=== PATIENT | male | born 1965 | race Caucasian/White ===

== ENCOUNTER 2025-05-25 20:54 | Inpatient (IN) | payer OTHER, SELFPAY ==
[2025-05-25] VITALS (17 sets, daily range): BP systolic 73–131; BP diastolic 50–85; BMI 35.4; BMI 35.8
--- NOTE | 2025-05-25 17:04 | ED.GENMED ---
History of Present Illness
<Kraig Dela Cruz MD, Resident - Last Filed: 05/25/25 19:53>
General
Chief Complaint: Abdominal Symptoms
Source: patient
Time Seen by Provider: 05/25/25 16:51
History of Present Illness
History of Present Illness:
Mr. Whalen is a 60-year-old male with history of external hemorrhoids who presents with 1 day of 'shakes,' fevers of up to 102 F, vomiting, and diarrhea. He states that yesterday around 8 PM, he started getting extreme chills and shakes that waxed
and waned for a few hours. He he reports checking his temperature and it was 102F at that point. He tried to sleep, however he developed yellow/brown watery diarrhea that kept him awake followed by episodes of yellow/green vomiting. He also
reports having an intense lower back pain at this time, which she presumes is from straining and retching, and that was alleviated by Advil. He also reports feeling very bloated. Currently he does not feel nauseous. His last episode of emesis was
at 1 PM today and he had diarrhea about 1 hour before coming to the ED. In urgent care, he reports his temperature was 101.6. Him and his partner ate this meal yesterday morning at a diner, but otherwise report no diet changes. Mr. Whalen denies
nausea, SOB, palpitations, recent antibiotic course, travel, or pain anywhere. He does endorse some dizziness.
<Yogesh Stewart, DO - Last Filed: 05/25/25 18:05>
General
Exam Limitations: none
Past History
<Kraig Dela Cruz MD, Resident - Last Filed: 05/25/25 19:53>
Past History
ED Past Medical History: None
ED Past Surgical History: None
Social History
Tobacco: Non-smoker
Alcohol: None
Drug: None
Personal:
Living: with family
Review of Systems
<Kraig Dela Cruz MD, Resident - Last Filed: 05/25/25 19:53>
Review of Systems
Allergies reviewed?: No
All Other Systems: ROS reviewed and negative except as documented in HPI and ROS
Constitutional: Reports fatigue and chills
Phy Exam
<Kraig Dela Cruz MD, Resident - Last Filed: 05/25/25 19:53>
General Physical Exam
General Presentation: well appearing
General Skin: dry and pale
General Habitus: obese
General Mental: alert
General Hydration: dry mucous membranes
ENT Exam
ENT Exam: EOMI
Pulmonary Exam
Pulmonary Exam: lungs clear, no respiratory distress and chest non tender
Gastrointestinal Exam
Gastrointestinal Exam: normal bowel sounds, non tender, soft and non distended
Skin Exam
Skin Exam: warm/dry and pallor
Psychiatric Exam
Psychiatric Exam: normal mood/affect
Sepsis
<Kraig Dela Cruz MD, Resident - Last Filed: 05/25/25 19:53>
Sepsis Screening
Sepsis Assessment: Sepsis
Sepsis Screen
Sepsis Screen: Sepsis
Date: 05/25/25
Time: 19:53
Course
<Kraig Dela Cruz MD, Resident - Last Filed: 05/25/25 19:53>
Orders/Labs/Results
Orders:
Orders
05/25/25 17:09
0.9% Sodium Chloride 1000 ml [Nss] 3,500 ml IV NOW STA
05/25/25 17:10
Stool for Occult Blood Routine
05/25/25 17:11
Electrocardiogram (*1) Urgent
Reason for Study: Tachycardia
05/25/25 17:25
Complete Blood Count/With Diff Urgent
Comprehensive Metabolic Panel Urgent
Manual Differential Urgent
Blood Culture Q30M
SHIMON Source: Blood/Venous
Specimen Description:
05/25/25 17:29
Piperacillin/Tazo 3.375 Gram [Zosyn] 3.375 gram in 50 ml IV NOW
05/25/25 17:38
Lactic Acid Q4H
Comment: ON ICE, CANCEL 2ND ORDER IF FIRST LACTIC ACID LEVEL <2
05/25/25 17:56
CT Abd/pel (oral only)-DH Only Urgent
Comment:
Reason For Exam: sepsis ARF
Iohexol [Omnipaque] See Protocol PO NOW STA
05/25/25 19:27
Urinalysis Reflex To Culture Urgent
Date Specimen was Collected: 05/25/25
Time Specimen was Collected: 19:25
Urine Microscopic Reflex Cult Urgent
Urine Culture Urgent
SHIMON Source: U
Specimen Description:
Date Specimen was Collected: 05/25/25
Time Specimen was Collected: 19:25
05/25/25 19:28
Norovirus by PCR Urgent
SHIMON Source: Feces/Stool
Specimen Description:
Date Specimen was Collected: 05/25/25
Time Specimen was Collected: 19:24
Ova & Parasites Giardia/Crypto AG [Giardia/Cryptosporidium Ag] Urgent
SHIMNO Source: Feces/Stool
Specimen Description:
Date Specimen was Collected: 05/25/25
Time Specimen was Collected: 19:24
STOOL [C difficile Antigen & Toxins] Urgent
SHIMON Source: Feces/Stool
Specimen Description:
Date Specimen was Collected: 05/25/25
Time Specimen was Collected: 19:24
Stool Culture Urgent
SHIMON Source: Feces/Stool
Specimen Description:
Date Specimen was Collected: 05/25/25
Time Specimen was Collected: 19:24
Yersinia Culture-Stool Urgent
SHIMON Source: Feces/Stool
Specimen Description:
Date Specimen was Collected: 05/25/25
Time Specimen was Collected: 19:24
05/25/25 21:45
Lactic Acid Q4H
Comment: ON ICE, CANCEL 2ND ORDER IF FIRST LACTIC ACID LEVEL <2
Abnormal Lab Results
05/25/25 05/25/25 05/25/25
17:25 17:38 19:27
RBC 4.51 L 10^6/uL
(4.70-6.10)
Abs Neuts (Manual) 8.4 H 10^3/uL
(1.4-6.5)
Band Neutrophils 18 H %
(0-3)
Lymphocytes (Manual) 8 L %
(20-51)
Monocytes (Manual) 10 H %
(2-9)
Carbon Dioxide 20 L mmol/L
(22-30)
BUN 36 H mg/dl
(9-20)
Creatinine 2.6 H mg/dL
(0.7-1.3)
Glucose 132 H mg/dl
(70-99)
Lactic Acid 8.6 H* mmol/L
(0.7-2.0)
Total Bilirubin 1.5 H mg/dl
(0.2-1.3)
Ur Occult Blood Reflex 1+ A
(Negative)
Leukocyte Esterase Rfl 1+ A
(Negative)
Urine Albumin (Reflex) 3+ A
(Neg - Trace)
05/25/25 17:25
05/25/25 17:25
Vital Signs
Initial and Last Documented VS:
Initial Vital Signs
Temp Pulse Resp BP Pulse Ox
98.0 F 131 22 90/59 98
05/25/25 16:05/25/25 16:05 05/25/25 16:05/25/25 16:05/25/25 16:05
Last Documented Vital Signs
Temp Pulse Resp BP Pulse Ox
98.0 F 105 30 118/78 94
05/25/25 16:05/25/25 19:15 05/25/25 17:13 05/25/25 19:15 05/25/25 18:15
<Yogesh Stewart, DO - Last Filed: 05/25/25 18:05>
Orders/Labs/Results
Orders:
Orders
05/25/25 17:09
0.9% Sodium Chloride 1000 ml [Nss] 3,500 ml IV NOW STA
05/25/25 17:10
Stool for Occult Blood Routine
05/25/25 17:11
Electrocardiogram (*1) Urgent
Reason for Study: Tachycardia
05/25/25 17:25
Complete Blood Count/With Diff Urgent
Comprehensive Metabolic Panel Urgent
Manual Differential Urgent
Blood Culture Q30M
SHIMON Source: Blood/Venous
Specimen Description:
05/25/25 17:29
Piperacillin/Tazo 3.375 Gram [Zosyn] 3.375 gram in 50 ml IV NOW
05/25/25 17:38
Lactic Acid Q4H
Comment: ON ICE, CANCEL 2ND ORDER IF FIRST LACTIC ACID LEVEL <2
05/25/25 17:56
CT Abd/pel (oral only)-DH Only Urgent
Comment:
Reason For Exam: sepsis ARF
Iohexol [Omnipaque] See Protocol PO NOW STA
05/25/25 19:27
Urinalysis Reflex To Culture Urgent
Date Specimen was Collected: 05/25/25
Time Specimen was Collected: 19:25
Urine Microscopic Reflex Cult Urgent
Urine Culture Urgent
SHIMON Source: U
Specimen Description:
Date Specimen was Collected: 05/25/25
Time Specimen was Collected: 19:25
05/25/25 19:28
Norovirus by PCR Urgent
SHIMON Source: Feces/Stool
Specimen Description:
Date Specimen was Collected: 05/25/25
Time Specimen was Collected: 19:24
Ova & Parasites Giardia/Crypto AG [Giardia/Cryptosporidium Ag] Urgent
SHIMON Source: Feces/Stool
Specimen Description:
Date Specimen was Collected: 05/25/25
Time Specimen was Collected: 19:24
STOOL [C difficile Antigen & Toxins] Urgent
SHIMON Source: Feces/Stool
Specimen Description:
Date Specimen was Collected: 05/25/25
Time Specimen was Collected: 19:24
Stool Culture Urgent
SHIMON Source: Feces/Stool
Specimen Description:
Date Specimen was Collected: 05/25/25
Time Specimen was Collected: 19:24
Yersinia Culture-Stool Urgent
SHIMON Source: Feces/Stool
Specimen Description:
Date Specimen was Collected: 05/25/25
Time Specimen was Collected: 19:24
05/25/25 21:45
Lactic Acid Q4H
Comment: ON ICE, CANCEL 2ND ORDER IF FIRST LACTIC ACID LEVEL <2
Abnormal Lab Results
05/25/25 05/25/25 05/25/25
17:25 17:38 19:27
RBC 4.51 L 10^6/uL
(4.70-6.10)
Abs Neuts (Manual) 8.4 H 10^3/uL
(1.4-6.5)
Band Neutrophils 18 H %
(0-3)
Lymphocytes (Manual) 8 L %
(20-51)
Monocytes (Manual) 10 H %
(2-9)
Carbon Dioxide 20 L mmol/L
(22-30)
BUN 36 H mg/dl
(9-20)
Creatinine 2.6 H mg/dL
(0.7-1.3)
Glucose 132 H mg/dl
(70-99)
Lactic Acid 8.6 H* mmol/L
(0.7-2.0)
Total Bilirubin 1.5 H mg/dl
(0.2-1.3)
Ur Occult Blood Reflex 1+ A
(Negative)
Leukocyte Esterase Rfl 1+ A
(Negative)
Urine Albumin (Reflex) 3+ A
(Neg - Trace)
05/25/25 17:25
05/25/25 17:25
Vital Signs
Initial and Last Documented VS:
Initial Vital Signs
Temp Pulse Resp BP Pulse Ox
98.0 F 131 22 90/59 98
05/25/25 16:05 05/25/25 16:05 05/25/25 16:05 05/25/25 16:05 05/25/25 16:05
Last Documented Vital Signs
Temp Pulse Resp BP Pulse Ox
98.0 F 105 30 118/78 94
05/25/25 16:05 05/25/25 19:15 05/25/25 17:13 05/25/25 19:15 05/25/25 18:15
<Kraig Dela Cruz MD, Resident - Last Filed: 05/25/25 19:53>
MDM/Problems Addressed
Differential Diagnosis Includes:
Gastroenteritis
Colitis
Acute Anemia
GI Bleed
Abdominal Abscess
MDM/Problems Addressed:
Mr. Whalen is a 60-year-old male with history of external hemorrhoids who presents with 1 day of 'shakes,' fevers of up to 102 F, vomiting, and diarrhea.
#Sepsis
#Vomiting
#Diarrhea
The etiology of his symptoms is most suspicious for gastroenteritis, although differential above is still possible. We will plan to admit him for further workup.
- Lactic Acid 8.6
- Fluid Resuscitation 30cc/kg - 3.5L NSS
- IV Zosyn 3.375g x1
- Blood cultures
- Stool cultures
- Stool studies - Yersinia, Norovirus, Giardia, C Diff, Stool/Ova
- CT A/P with oral contrast
#ALANA
Creatinine 2.6. Unclear what baseline is.
- Fluid resuscitation as above.
<Kraig Dela Cruz MD, Resident - Last Filed: 05/25/25 19:53>
*Pulse Oximetry
SaO2: 95
Patient hypoxic: no
*Critical Care Note
Total Time (30-74mins, 75-104mins- exclusive of procedures): Not Applicable
ED Attending Note
<Kraig Dela Cruz MD, Resident - Last Filed: 05/25/25 19:53>
-
Portions of this chart may have been created with voice recognition software.� Occasional wrong word or��sound alike� substitutions may have occurred due to the inherent limitations of voice recognition software.
<Yogesh Stewart DO - Last Filed: 05/25/25 18:05>
ED Attending Note
Patient seen and examined by attending physician: Yes
I performed a history and physical exam of patient and discussed management with resident, I reviewed resident's note and agree with documented findings and plan of care.: Yes
ED Attending Note:
Seen with resident examined independently 60-year-old male male on male relationship on PrEP, hypertension presents with fever chills back pain nausea profuse diarrhea no foreign travel, no sick contacts, here is hypotensive, normal mental status
will check stool cultures, blood cultures volume resuscitation CT of the abdomen empiric antibiotics follow closely
Discharge Plan
Departure
Patient Disposition: Admit
Date of Disposition: 05/25/25
Time of Disposition: 19:41
Admit to: Telemetry and IMU
Presentation/result/management discussed w/ accepting MD/DO: Hospitalist
Discharge Problem:
Sepsis, Vomiting, Diarrhea
Prescriptions:
No Action
Descovy 200-25 mg Tablet
1 tab PO DAILY
Referrals:
Jeremy Gupta MD [Family Provider, General]
Interventions
Interventions:
*Risk Screen - Suicide Last Done: 05/25/25 16:11
*General Assessment Last Done: 05/25/25 17:02
*Neglect/Abuse Screening Last Done: 05/25/25 16:11
*ED- Fall Risk Assessment Last Done: 05/25/25 17:02
*ED COVID-19 Vaccine History Last Done: 05/25/25 17:02
NG-Rzfose-Ccskdnglxp Assessment Last Done: 05/25/25 17:02
Discharge Date and Time
Print Language: UKRAINIAN
[2025-05-25] MEDS: NSS 3500 ML IV (17:30)
[2025-05-25] MEDS: ZOSYN 50 IV ×2 (17:38→23:38)
[2025-05-25 17:54] LABS: AST (SGOT) 25 U/L (17-59); Albumin 4.4 g/dl (3.5-5.0); Alkaline Phosphatase 60 U/L (38-126); Blood Urea Nitrogen 36 mg/dl (9-20); Calcium 8.9 mg/dl (8.4-10.2); Carbon Dioxide 20 mmol/L (22-30); Chloride 101 mmol/L (98-107); Estimated Creatinine Clearance 39 ml/min; Glucose 132 mg/dl (70-99); Potassium 3.9 mmol/L (3.5-5.1); Sodium 136 mmol/L (135-145); Total Protein 7.0 g/dl (6.3-8.2); eGFR 27.55
[2025-05-25 18:04] LABS: ALT (SGPT) 29 U/L (0-50)
[2025-05-25] MEDS: OMNIPAQUE 50 ML PO (18:14)
[2025-05-25 18:36] LABS: Hematocrit 40.2 % (39.0-52.0); Hemoglobin 13.6 g/dL (13.0-18.0); Mean Corp Hgb Conc. 33.8 g/dL (33.0-37.0); Mean Corpuscular Volume 89.1 fL (80.0-94.0); Platelet Count 225 10^3/uL (130-400); Red Cell Dist. Width 12.4 % (11.5-14.5)
[2025-05-25 18:37] LABS: Absolute Neutrophils -Man Diff 8.4 10^3/uL (1.4-6.5); Normal RBC Morphology Yes; Platelets Checked Yes; Total Cells Counted 100
[2025-05-25 19:40] LABS: Urine Character Slightly Cloudy (Clear)
--- NOTE | 2025-05-25 19:59 | HPS.HSE ---
Family Physician
-
Family Physician: Jeremy Gupta MD
Chief Complaint
-
Diarrhea
History of Present Illness
This is a 60-year-old with past medical history of HIV on [place] presenting to the emergency department with diarrhea vomiting and fevers up to 102.
Symptoms began at around 8 PM yesterday with extreme chills and shakes at work, went for hours. He reported that he had a temperature of 102 yesterday. He then developed yellow/brown watery diarrhea that kept him awake followed by episodes of
yellow-green vomiting.
He reports intense lower back pain associated with straining and retching. Bloating but not nausea. Last emesis was 1 PM today that was diarrhea prior to coming to the ED. Had a Tmax of 101.6 at urgent care prior to coming to the ED.
So far in the ED his temperature was 98, blood pressure on arrival was 73/50, as high as 118/78 after crystalloid resuscitation, with a pulse of 105 and he was satting 94% on room air
Has a white count of 10.8 hemoglobin 13.6 platelet of 225, electrolytes were normal. BUN/creatinine elevated at 31 and 2.6 with unknown baseline.
ECG shows sinus tachycardia at 106.
UA with some WBCs and bacteria and leukocyte esterase but likely contaminated.
Medical History
Past Medical History
Past Medical History: Reports Other
Additional Past Medical History:
Obesity,
HIV on ART
External hemorrhoid
Past Surgical History: Reports None
Social History
Tobacco: Non-smoker
Alcohol: None
Drug: None
Family History
Family History: Not pertinent
Allergies / Home Medications
Allergies reflects when Allergies were last updated in [facility].
Home Medications with original date entered in [facility]
Allergy/Medication List:
Allergies
Allergy/AdvReac Type Severity Reaction Status Date / Time
No Known Allergies Allergy Verified 05/25/25 16:10
Home Medications
emtricitabine 200 mg-tenofovir alafenamide fumarate 25 mg tablet (Descovy) 1 tab PO DAILY 05/25/25
Review of Systems
-
Constitutional: Reports Fever
EENT: Reports No Symptoms
Respiratory: Reports No Symptoms
Cardiac: Reports No Symptoms
Abdomen/GI: Reports See HPI
: Reports No Symptoms
Musculoskeletal: Reports No Symptoms
Skin: Reports No Symptoms
Neurological: Reports No Symptoms
Endocrine: Reports No Symptoms
Hematologic/Lymphatic: Reports No Symptoms
Psych: Reports No Symptoms
Physical Exam
Vital Signs
Vital Signs
Temp Pulse Resp BP Pulse Ox
98.0 F 105 30 118/78 94
05/25/25 16:05 05/25/25 19:15 05/25/25 17:13 05/25/25 19:15 05/25/25 18:15
Physical Exam
General: Well Developed, Well Nourished and No Apparent Distress
HEENT: NormoCephalic, Moist mucous membranes and Atraumatic
Respiratory: Clear
Cardiac: S1/S2 and Regular Rhythm; No Murmur or Rub
GI: Soft, Non Tender, Non Distended and Normal Bowel Sounds; No Organomegaly
Rectal: Deferred by Provider
Musculoskeletal: No Clubbing, No Cyanosis and No Edema
Skin: No Rash
Neuro: Nonfocal/grossly intact
Laboratory Results
-
05/25/25 17:25
05/25/25 17:25
Laboratory Results
Lactic Acid 8.6 mmol/L (0.7-2.0) H* 05/25/25 17:38
Total Bilirubin 1.5 mg/dl (0.2-1.3) H 05/25/25 17:25
AST 25 U/L (17-59) 05/25/25 17:25
ALT 29 U/L (0-50) 05/25/25 17:25
Alkaline Phosphatase 60 U/L (38-126) 05/25/25 17:25
Data Reviewed
-
CT Scan: Report Reviewed by me
Medical Tests (Nuc Med, Echo, EKG etc): Image Personally Visualized and interpreted
Lab Data: Labs Reviewed by me
Old Records: Reviewed
Impression/Plan
-
IMPRESSION:
60-year-old male on Descovy for exposure prophylaxis with normal WBCs and no history of AIDS HIV infection himself presents to the emergency department with 1 day of voluminous, continued watery brown diarrhea associated with rigors and fevers and
found to have sepsis with hypotension in the ED. Was hypotensive to 70 systolic. WBC 10.8 with 18% bands, his lactic acid was 8.6, UA is possibly positive. He is pending a CT scan of the abdomen pelvis. He did respond to 30 mL/kg of normal
saline bolus. Patient complicated by presumed ALANA. He is on Descovy for preexposure prophylaxis. He gets 3 months of HIV checks and said that his last check was negative.
CT a/p: There is diffuse wall thickening and surrounding stranding along the colon consistent with pancolitis. Cholelithiasis without CT findings suggestive of acute cholecystitis.
PLAN:
Infectious diarrhea with sepsis -possible discharge he was on clear source. Possibly diarrhea with transient bacteremia. CT scan w/ pancolitis.
- Admit to IMU
- stool culture, cdiff, O&P sent
- blood cultures sent
- Ucx sent
- Acute HIV testing
- diet as tolerated
- continue IV fluids with lactated ringers for now
- can hold descovy for pre exp ppx
ALANA - Suspect sepsis/hypovolemia
- CT scan pending
- Continue IV fluids
- avoid nephrotoxins
- renal dose meds
- no obvious obstruction
- nephrology consult if Cr worsening
DVT PPX - heparin sq
code status - Full Code
[2025-05-25] MEDS: TYLENOL PO (21:26)
[2025-05-25] MEDS: TYLENOL 650 MG PO (21:37)
[2025-05-25] MEDS: LR 1000 IV (23:37)
[2025-05-25] MEDS: ZITHROMAX INFUSION 250 IV (23:38)
[2025-05-25] MEDS: HEPARIN 5000 UNITS SC (23:39)
--- NOTE | 2025-05-26 01:15 | PTCARENOTE ---
Patient arrived from the ED via stretcher at approximately 2215. Patient ambulated self from stretcher to bed - gait steady. Patient AAOx3. VSS as documented. Assessment as documented. Patient oriented to room. Bed in lowest position. Call stanley
within reach.
[2025-05-26 03:19] VITALS: BP 132/71
[2025-05-26] MEDS: ZOSYN 50 IV ×4 (05:20→22:58)
[2025-05-26 07:02] LABS: Hematocrit 34.8 % (39.0-52.0); Hemoglobin 12.2 g/dL (13.0-18.0); Mean Corp Hgb Conc. 35.1 g/dL (33.0-37.0); Mean Corpuscular Volume 86.1 fL (80.0-94.0); Platelet Count 156 10^3/uL (130-400); Red Cell Dist. Width 12.3 % (11.5-14.5)
[2025-05-26 07:40] VITALS: BP 113/72
[2025-05-26 07:50] LABS: Cortisol, Random 31.4 ug/dl
--- NOTE | 2025-05-26 08:26 | W.PN.HOSP.TC ---
Today's Communication/Plan
-
see PN
Assessment / Plan
Assessment / Plan
60yo M with no significant PMHX, currently on Dyscovy for pre-exposure prophylaxis came with watery diarrhea started 48h after admission after dinner. No risk factors identified. CT showed butts-colitis
A/P:
#Sepsis on admission 2/2 Pancolitis
Zosyn
IVF
follow electrolytes
Norovirus, Cryptosporidium and C.diff negative
Stool Cx pending
advance diet as tolerated
HIV test pending
#ALANA
2/2 diarrhea
IVF and follow Cr
CT without hydronephrosis or nephrolithiasis
Urine studies
#Mild bilirubinemia
check direct bili, LDH, retics
Blood smear
#renal cyst 4.2cm
#umbilical hernia
#Splenomegaly, most likely reactive
#Cholelithiasis
outpatient f/u
check monospot
#Bacteriuria
no urinary symptoms, however thickened urinary bladder wall
check Clam/GC
DVT ppx hep
full code
I have spent at least 58min reviewing chart, test results and providing direct patient care
Anticipated Discharge: > 48 hours
Subjective/Interval History
-
Date of Service: May 26, 2025
Objective Data
-
Labs:
Laboratory Results
05/26/25 05/26/25
06:34 07:22
WBC 7.3
Hgb 12.2 L
Hct 34.8 L
Plt Count 156 D
Sodium Cancelled Pending
Potassium Cancelled Pending
Chloride Cancelled Pending
Carbon Dioxide Cancelled Pending
BUN Cancelled Pending
Creatinine Cancelled Pending
Glucose Cancelled Pending
Calcium Cancelled Pending
Total Bilirubin Pending
AST Pending
ALT Pending
Alkaline Phosphatase Pending
Vital Signs:
Vital Signs
Temp Pulse Resp BP Pulse Ox
98.8 F 110 20 132/71 97
05/26/25 03:19 05/26/25 03:19 05/26/25 03:19 05/26/25 03:19 05/26/25 03:19
I&O
05/25/25 05/26/25 05/27/25
06:59 06:59 06:59
Intake Total 1510 / 1510
Balance 1510 / 1510
Review of Systems
-
History Source: Patient
All other systems: Reviewed and negative
Abdomen/GI: Reports Diarrhea and Bloated
Physical Exam
-
General: No Apparent Distress
GI: Soft, Nontender and Distended; Negative Normal Bowel Sounds
Neuro: Awake, Alert, Oriented and AO x 3
Psych: Calm
[2025-05-26] MEDS: HEPARIN 5000 UNITS SC ×2 (08:42→22:59)
[2025-05-26] MEDS: LR 1000 IV ×2 (08:42→15:54)
[2025-05-26 10:33] LABS: ALT (SGPT) 22 U/L (0-50); AST (SGOT) 21 U/L (17-59); Albumin 3.4 g/dl (3.5-5.0); Alkaline Phosphatase 47 U/L (38-126); Blood Urea Nitrogen 33 mg/dl (9-20); Calcium 8.0 mg/dl (8.4-10.2); Carbon Dioxide 22 mmol/L (22-30); Chloride 104 mmol/L (98-107); Estimated Creatinine Clearance 69 ml/min; Glucose 123 mg/dl (70-99); Potassium 4.1 mmol/L (3.5-5.1); Sodium 133 mmol/L (135-145); Total Protein 5.6 g/dl (6.3-8.2); eGFR 53.30
--- NOTE | 2025-05-26 11:23 | CM ---
Reviewed the chart notes and spoke with the patient at the bedside. The patient resides with his significant other in a three story home with three steps to enter. The patient reports no DME/VN/SNF in the past. The patient confirmed his pharmacy
of choice is [facility]. CM continues to be available to patient/family and is monitoring medical plan for needs at discharge.
Plan: Discharge to home when medically stable. No needs identified.
--- NOTE | 2025-05-26 14:05 | PN.CDI ---
Addendum entered and electronically signed by Eloy Cespedes MD 05/26/25 19:04:
irrelevant as diagnosis already provided
Original Note:
CDI
- -
CDI:
Physician Documentation Request
Admit Date: 05/25/25 20:54
Dear Doctor Rubina,
Please review the following and provide your response in the progress notes.
Clinical Indicators:
Pt admitted with sepsis 2/2 infectious diarrhea
Trended lactic acid levels below /Pt did get IVFs
05/25/25 05/25/25 05/26/25
17:38 21:59 02:19
Lactic Acid 8.6 H* 4.2 H* 2.7 H
05/26/25
06:34
Lactic Acid 1.6
Based on the above, could you clarify in the progress notes, the appropriate diagnosis, if significant, that supports the above abnormalities and additional evaluation, monitoring and/or treatment rendered:
Lactic Acidosis
Abnormal lab value only
Other ( please specify)
Use of terms such as suspected, likely, concern for, or probable (associated with a specific diagnosis that is being evaluated, monitored, or treated as if it exists) are acceptable and can be coded in the inpatient setting, when documented at the
time of discharge.
Thank you,
Teresa Abdul RN
CDI Specialist
[place] [facility]
Please use your independent medical judgment in providing your response.
--- NOTE | 2025-05-26 14:11 | PN.CDI ---
Addendum entered and electronically signed by Eloy Cespedes MD 05/26/25 19:03:
documentation already complete
Original Note:
CDI
- -
CDI:
Physician Documentation Request
Admit Date: 05/25/25 20:54
Dear Doctor Rubina ,
Please review the following and provide your response in the progress notes.
Clinical Indicators:
Pt admitted with sepsis 2/2 infectious diarrhea
Documented per progress note 05/26, ' ALANA 2/2 diarrhea IVF and follow Cr....'
Please clarify which of the following most accurately describes the status of the patient's infection:
Severe Sepsis-POA
- Sepsis with associated acute organ dysfunction, such as renal or respiratory failure
- Documentation should indicate the association between the sepsis and the organ dysfunction
Sepsis only
Other ( please specify)
Use of terms such as suspected, likely, concern for, or probable (associated with a specific diagnosis that is being evaluated, monitored, or treated as if it exists) are acceptable and can be coded in the inpatient setting, when documented at the
time of discharge.
Thank you,
Teresa Abdul RN
CDI Specialist
[place] [facility]
Please use your independent medical judgment in providing your response.
[2025-05-26 15:30] VITALS: BP 128/71
[2025-05-26] MEDS: HEPARIN SC (15:52)
[2025-05-26 20:00] VITALS: BP 121/84
[2025-05-26] MEDS: ZITHROMAX INFUSION 250 IV (22:58)
[2025-05-26] MEDS: IMODIUM 2 MG PO (22:58)
[2025-05-26 23:16] VITALS: BP 133/70
[2025-05-27] VITALS (7 sets, daily range): BP systolic 129–155; BP diastolic 86–96
[2025-05-27] MEDS: LR 1000 IV (01:04)
[2025-05-27] MEDS: ZOSYN 50 IV ×4 (05:09→23:00)
[2025-05-27 06:27] LABS: Hematocrit 32.7 % (39.0-52.0); Hemoglobin 11.2 g/dL (13.0-18.0); Mean Corp Hgb Conc. 34.3 g/dL (33.0-37.0); Mean Corpuscular Volume 87.7 fL (80.0-94.0); Platelet Count 163 10^3/uL (130-400); Red Cell Dist. Width 12.3 % (11.5-14.5)
[2025-05-27 06:40] LABS: ALT (SGPT) 18 U/L (0-50); AST (SGOT) 17 U/L (17-59); Albumin 3.1 g/dl (3.5-5.0); Alkaline Phosphatase 47 U/L (38-126); Blood Urea Nitrogen 21 mg/dl (9-20); Calcium 8.2 mg/dl (8.4-10.2); Carbon Dioxide 23 mmol/L (22-30); Chloride 104 mmol/L (98-107); Estimated Creatinine Clearance 94 ml/min; Glucose 105 mg/dl (70-99); Potassium 3.8 mmol/L (3.5-5.1); Sodium 133 mmol/L (135-145); Total Protein 5.4 g/dl (6.3-8.2); eGFR > 60.00
[2025-05-27 07:50] LABS: Nucleated Red Blood Cells % 0 % (-)
[2025-05-27] MEDS: HEPARIN 5000 UNITS SC ×2 (08:19→16:31)
--- NOTE | 2025-05-27 09:42 | W.PN.HOSP.TC ---
Today's Communication/Plan
-
diarrhea improving
cont Abx
stop IVF and monitor Cr
HIV still pending
Assessment / Plan
Assessment / Plan
60yo M with no significant PMHX, currently on Dyscovy for pre-exposure prophylaxis came with watery diarrhea started 48h after admission after dinner. No risk factors identified. CT showed butts-colitis
A/P:
#Sepsis on admission 2/2 Pancolitis
Zosyn
IVF
follow electrolytes
Norovirus, Cryptosporidium and C.diff negative
Stool Cx pending
advance diet as tolerated
HIV test pending
#ALANA
2/2 diarrhea
IVF and follow Cr
CT without hydronephrosis or nephrolithiasis
Urine studies
#Mild bilirubinemia
improved
Blood smear neg for parasites
#renal cyst 4.2cm
#umbilical hernia
#Splenomegaly, most likely reactive
#Cholelithiasis
outpatient f/u
monospot neg
#Bacteriuria
no urinary symptoms, however thickened urinary bladder wall
Clam/GC neg
DVT ppx hep
full code
I have spent at least 51min reviewing chart, test results and providing direct patient care
Anticipated Discharge: Within 24 hours
Subjective/Interval History
-
Date of Service: May 27, 2025
Objective Data
-
Labs:
Laboratory Results
05/27/25
05:07
WBC 6.8
Hgb 11.2 L
Hct 32.7 L
Plt Count 163
Sodium 133 L
Potassium 3.8
Chloride 104
Carbon Dioxide 23
BUN 21 H
Creatinine 1.1
Glucose 105 H
Calcium 8.2 L
Total Bilirubin 0.7
AST 17
ALT 18
Alkaline Phosphatase 47
Vital Signs:
Vital Signs
Temp Pulse Resp BP Pulse Ox
98.2 F 85 18 129/86 96
05/27/25 07:00 05/27/25 07:00 05/27/25 07:00 05/27/25 07:00 05/27/25 08:20
I&O
05/26/25 05/27/25 05/28/25
06:59 06:59 06:59
Intake Total 1510 / 1510 3040 / 3040
Output Total 800 / 800
Balance 1510 / 1510 2240 / 2240
Review of Systems
-
History Source: Patient
All other systems: Reviewed and negative
Physical Exam
-
General: No Apparent Distress
HEENT: Normocephalic
Cardiac: Regular Rhythm
GI: Soft
Neuro: Awake, Alert, Oriented and AO x 3
Psych: Calm
[2025-05-27] MEDS: LR IV (10:04)
--- NOTE | 2025-05-27 11:12 | CM ---
Reviewed the chart notes. CM continues to be available to patient/family and is monitoring medical plan for needs at discharge.
Plan: Discharge to home when medically stable. No needs identified at this time.
[2025-05-27] MEDS: ZITHROMAX INFUSION 250 IV (23:00)
[2025-05-28] MEDS: HEPARIN 5000 UNITS SC ×3 (00:02→16:00)
[2025-05-28] MEDS: ZOSYN 50 IV ×2 (05:44→11:24)
[2025-05-28 07:05] VITALS: BP 150/93
[2025-05-28 09:03] LABS: ALT (SGPT) 23 U/L (0-50); AST (SGOT) 21 U/L (17-59); Albumin 3.5 g/dl (3.5-5.0); Alkaline Phosphatase 55 U/L (38-126); Blood Urea Nitrogen 14 mg/dl (9-20); Calcium 8.7 mg/dl (8.4-10.2); Carbon Dioxide 25 mmol/L (22-30); Chloride 102 mmol/L (98-107); Estimated Creatinine Clearance 115 ml/min; Glucose 102 mg/dl (70-99); Potassium 3.8 mmol/L (3.5-5.1); Sodium 133 mmol/L (135-145); Total Protein 6.2 g/dl (6.3-8.2); eGFR > 60.00
[2025-05-28 09:18] LABS: Hematocrit 35.0 % (39.0-52.0); Hemoglobin 11.9 g/dL (13.0-18.0); Mean Corp Hgb Conc. 34.0 g/dL (33.0-37.0); Mean Corpuscular Volume 86.6 fL (80.0-94.0); Nucleated Red Blood Cells % 0 % (-); Platelet Count 203 10^3/uL (130-400); Red Cell Dist. Width 11.9 % (11.5-14.5)
--- NOTE | 2025-05-28 09:39 | PN.CDI ---
CDI
- -
CDI:
Physician Documentation Request
Admit Date: 05/25/25 20:54
Dear Doctor Rubina ,
Please review the following and provide your response in the progress notes.
Clinical Indicators:
Pt admitted with Sepsis 2/2 pancolitis
Sodium levels are as below /Pt did get LR IVFs
05/26/25 05/27/25 05/28/25
08:56 05:07 08:08
Sodium 133 L 133 L 133 L
Based on the above, could you clarify in the progress notes, the appropriate diagnosis, if significant, that supports the above abnormalities and additional evaluation, monitoring and/or treatment rendered:
Hyponatremia
Abnormal ab value only
Other ( please specify)
Use of terms such as suspected, likely, concern for, or probable (associated with a specific diagnosis that is being evaluated, monitored, or treated as if it exists) are acceptable and can be coded in the inpatient setting, when documented at the
time of discharge.
Thank you,
Teresa Abdul RN
CDI Specialist
[employer]
Please use your independent medical judgment in providing your response.
--- NOTE | 2025-05-28 11:28 | W.PN.HOSP.TC ---
Addendum entered and electronically signed by Eloy Cespedes MD 05/28/25 12:10:
#mild hyponatremia
stable
Original Note:
Today's Communication/Plan
-
ID consult for further Abx, since no more diarrhea- possible d/c
Assessment / Plan
Assessment / Plan
60yo M with no significant PMHX, currently on Dyscovy for pre-exposure prophylaxis came with watery diarrhea started 48h after admission after dinner. No risk factors identified. CT showed butts-colitis, stool Cx grew shigella. Symptoms resolving on
Zosyn.
A/P:
#Sepsis on admission 2/2 Pancolitis due to Shigella
ID since butts-resstant, but patient improved on Zosyn
HIV test Neg
#ALANA
2/2 diarrhea
IVF and follow Cr
CT without hydronephrosis or nephrolithiasis
Urine studies
#Mild bilirubinemia
improved
Blood smear neg for parasites
#renal cyst 4.2cm
#umbilical hernia
#Splenomegaly, most likely reactive
#Cholelithiasis
outpatient f/u
monospot neg
#Bacteriuria
no urinary symptoms, however thickened urinary bladder wall
Clam/GC neg
DVT ppx hep
full code
I have spent at least 51min reviewing chart, test results and providing direct patient care
Anticipated Discharge: Within 24 hours
Subjective/Interval History
-
Date of Service: May 28, 2025
Objective Data
-
Labs:
Laboratory Results
05/28/25
08:08
WBC 6.9
Hgb 11.9 L
Hct 35.0 L
Plt Count 203 D
Sodium 133 L
Potassium 3.8
Chloride 102
Carbon Dioxide 25
BUN 14
Creatinine 0.9
Glucose 102 H
Calcium 8.7
Total Bilirubin 0.8
AST 21
ALT 23
Alkaline Phosphatase 55
Vital Signs:
Vital Signs
Temp Pulse Resp BP Pulse Ox
98.7 F 78 20 150/93 98
05/28/25 07:05 05/28/25 07:05 05/28/25 07:05 05/28/25 07:05 05/28/25 07:05
I&O
05/27/25 05/28/25 05/29/25
06:59 06:59 06:59
Intake Total 3040 / 3040 1035 / 1035
Output Total 800 / 800
Balance 2240 / 2240 1035 / 1035
Review of Systems
-
History Source: Patient
All other systems: Reviewed and negative
Physical Exam
-
General: No Apparent Distress
HEENT: Normocephalic
GI: Soft, Nontender and Nondistended
Psych: Calm
--- NOTE | 2025-05-28 12:00 | CON.ID ---
Addendum entered and electronically signed by Josefina Cho MD 05/28/25 15:10:
I personally performed a history and physical exam of the patient and discussed management with the resident. I reviewed the resident's note and agree with the documented findings and plan of care HPI/CC EXCEPT pt does not have HIV. HIV listed
in PMHx is incorrect. 05/26/25 HIV 4th generation test is negative.
# MDR-Shigellosis with pancolitis
# Fever resolved
# MSM on PrEP
- Suspect pt acquired Shigella from high risk sexual behavior (multiple partners).
MSM are at higher risk for multi-drug resistant Shigella.
- Should be susceptible to Ertapenem or Meropenem.
- Discussed with micro-lab. Organism susceptible to ceftriaxone. Unable to test for azithromycin in house.
No need for carbapenem. Will use ceftriaxone 2g IV q24h.
- DC Zosyn and azithromycin.
- Follow for clinical improvement.
- Discussed abstain from any types of sexual activities for at least 2 weeks from resolution of diarrhea. Must wash hands frequently.
- Contact precaution.
Original Note:
Documented by User: Freeman Cole MD, Resident 05/28/25 14:28
Consultation
-
Date/Time Consultation Requested: 05/28/2025 11:29
Date/Time Consultation Performed: 05/28/2025 12:30
Requesting Provider: Eloy Cespedes MD
Performing Provider: Freeman Cole MD ; Josefina Cho MD
Reason for Consultation: Diarrhea secondary to Shigella
Chief Complaint / Past History
Chief Complaint
Diarrhea
History of Present Illness
This is a 60-year-old male with known past medical history of HIV prevention on presented in the emergency department with diarrhea, vomiting and fever on 05/25/2025. According to the patient symptoms began on 05/24 and initially it was chills
and shakes later he had a fever of 102 and also developed watery diarrhea with multiple episodes of vomiting.
In the emergency his initial temperature was 98 and remained afebrile here, however the blood pressure was on the lower side and was 73/50; improved after fluid resuscitation. Was tachycardic. White count was 10.8 EKG with tachycardia. Creatinine
of 2.6(back to normal as of now). His lactic acid was 8.6(now back to normal)
Stool studies were obtained and he was admitted for additional care. CT abdomen was also obtained which showed pancolitis. Blood culture and stool study were ordered and he was started on Zosyn and azithromycin.
Blood culture remained negative. Urine culture was also negative. Stool study was negative for C. difficile as well as Yersinia species. Negative for Cryptosporidium and Giardia. Negative for norovirus. Blood parasite smear was also negative.
Urine chlamydia and gonorrhea was negative.
Stool culture was positive for Shigellaa species and negative for campylobacter and E. coli Shiga toxin
Past History
Past Medical History: Other (Obesity, HIV, external hemorrhoids)
Past Surgical History: None
Allergy History:
No Known Allergies Allergy (Verified 05/25/25 16:10)
Medications Reviewed: Yes
Current Antibiotics:
Zosyn and Azithromycin
Social History
Tobacco: Non-Smoker
Alcohol: None
Drug: None
Personal: Partner
Living: Other (With partner)
Employment: Employed
Family History
Family History: Not Pertinent
Review of Systems
Review of Systems
General: Negative Fever
Cardiovascular: Negative Chest Pain
Respiratory: Negative Cough
Gasteroenterology: Diarrhea (Improved now)
Genital / Urological: Negative Dysuria
Endocrine: Negative Weight Change
Musculoskeletal: Negative Joint Pain
Neurological: Negative Headache
Vital Signs
Temp Pulse Resp BP Pulse Ox
98.7 F 78 20 150/93 98
05/28/25 07:05 05/28/25 07:05 05/28/25 07:05 05/28/25 07:05 05/28/25 07:05
Physical Exam
Physical Exam
Constitutional: No Acute Distress and Comfortable
Cardiovascular: Regular Rate and S1/S2
Pulmonary: Clear, Symmetric and Non Labored
Gastrointestinal: Soft, Non Tender and Normal Bowel Sounds
Extremities: Negative Edema
Neurological: Awake, Alert and Oriented
Psychological: Calm
Lab / Diagnostic Study Results
05/28/25 08:08
05/28/25 08:08
Abs Immat Gran (auto) 0.0 10^3/uL (0-0.05) 05/28/25 08:08
Absolute Neuts (auto) 4.7 10^3/uL (1.4-6.5) 05/28/25 08:08
Absolute Lymphs (auto) 1.6 10^3/uL (1.2-3.4) 05/28/25 08:08
Absolute Monos (auto) 0.5 10^3/uL (0.1-0.6) 05/28/25 08:08
Absolute Basos (auto) 0.1 10^3/uL (0-0.2) 05/28/25 08:08
Total Counted 100 05/25/25 17:25
Immature Gran % 0.6 % (0-0.5) H 05/28/25 08:08
Neutrophils % 67.6 % (42.2-75.2) 05/28/25 08:08
Lymphocytes % 23.7 % (20.5-51.1) 05/28/25 08:08
Monocytes % 7.1 % (1.7-9.3) 05/28/25 08:08
Eosinophils % 0.3 % (0-6) 05/28/25 08:08
Basophils % 0.7 % (0-2) 05/28/25 08:08
Abs Neuts (Manual) 8.4 10^3/uL (1.4-6.5) H 05/25/25 17:25
Segmented Neutrophils 60 % (42-75) 05/25/25 17:25
Band Neutrophils 18 % (0-3) H 05/25/25 17:25
Lymphocytes (Manual) 8 % (20-51) L 05/25/25 17:25
Lactic Acid Cancelled 05/26/25 10:23
Ur Squamous Epith Cells 3-5 /LPF (Few) 05/25/25 19:27
Microbiology Results
Micro:
05/25/25 19:28 Miscellaneous Microbiology Test - Pending
Feces/Stool
05/25/25 19:28 Salmonella/Shigella Culture - Preliminary
Feces/Stool Shigella species
Campylobacter Culture - Final
No Campylobacter species isolated.
Shiga Toxin Test - Final
No E. coli Shiga Toxin 1 or 2 detected.
05/25/25 17:25 Blood Culture - Preliminary
Blood/Venous No Growth in 48 hours- Final report to follow
05/25/25 19:28 - Final
Feces/Stool NO YERSINIA SPECIES ISOLATED
05/25/25 19:27 Urine Culture - Final
Urine NO GROWTH
05/26/25 08:56 Blood Parasites Smear - Final
Blood/Venous
05/26/25 11:20 Chlamydia trachomatis (PCR) - Final
Urine Neisseria gonorrhoeae (PCR) - Final
05/25/25 19:28 Cryptosporidium/Giardia - Final
Feces/Stool Negative for Cryptosporidium and/or Giardia Lamblia
antigens.
- Final
Negative for Norovirus GI and GII.
05/25/25 19:28 C. difficile GDH Antigen & Toxins - Final
Feces/Stool Negative for toxigenic C.difficile
CT Abd/pel (oral only)-DH Only 05/25/2025:
There is diffuse wall thickening and surrounding stranding along the colon consistent with pancolitis.
Cholelithiasis without CT findings suggestive of acute cholecystitis.
Hepatosplenomegaly. Hepatic steatosis.
The urinary bladder wall is nondistended with apparent circumferential wall thickening, likely secondary to underdistention, however can be seen with cystitis. Recommend correlation with urinalysis.
Assessment / Plan
#Sepsis on admission 2/2 Pancolitis due to Shigella
#Diarrhea
#HIV prevention on HAART; recent test negative;has a male partner
#ALANA; resolved
#Splenomegaly; mono negative
- Stool culture with Shigella species; Isolate sent to [facility] for identification confirmation.
- Resistant to ampicillin, tetracycline and Bactrim with intermediate to Cipro
- Currently patient is on Zosyn and Azithromycin day 4
requested lab to check for cftx and azithro sens.
in the meantime we can switch to ertapenem

Documented by User: Josefina Cho MD 05/28/25 14:55
Chief Complaint / Past History
Past History
Additional Past Medical History:
Obesity BMI 36
Hemorrhoids
[2025-05-28 15:00] VITALS: BP 149/82
[2025-05-28] MEDS: STERILE WATER FOR INJECTION 20 ML IV (15:59)
[2025-05-28] MEDS: ROCEPHIN 2000 MG IV (15:59)
[2025-05-28 23:16] VITALS: BP 132/83
[2025-05-29] MEDS: HEPARIN 5000 UNITS SC ×4 (00:23→23:03)
[2025-05-29 07:00] VITALS: BP 159/92
--- NOTE | 2025-05-29 07:28 | W.PN.HOSP.TC ---
Today's Communication/Plan
-
See plan
Assessment / Plan
Assessment / Plan
Physical Exam
General: No Apparent Distress
HEENT: Normocephalic
GI: Soft, Nontender and Nondistended
Psych: Calm
Assessment/Plan
60yo M with no significant PMHX, currently on Dyscovy for pre-exposure prophylaxis came with watery diarrhea started 48h after admission after dinner. No risk factors identified. CT showed butts-colitis, stool Cx grew shigella. Symptoms resolving on
Zosyn.
#Sepsis on admission 2/2 Pancolitis due to Shigella
# MDR-Shigellosis with pancolitis
# Fever resolved
# MSM on PrEP
ID since butts-resstant, but patient improved on Zosyn
Continue Rocephin
HIV test Neg
ID consult appreciated
#ALANA
2/2 diarrhea
Resolved
IVF was given
Follow Cr
CT without hydronephrosis or nephrolithiasis
Urine studies
#Mild bilirubinemia
improved
Blood smear neg for parasites
#mild hyponatremia
stable
#renal cyst 4.2cm
#umbilical hernia
#Splenomegaly, most likely reactive
#Cholelithiasis
outpatient f/u
monospot neg
#Bacteriuria
no urinary symptoms, however thickened urinary bladder wall
Clam/GC neg
DVT ppx hep
full code
Anticipated Discharge: Within 24 hours
Subjective/Interval History
-
Date of Service: May 29, 2025
Patient was seen and examined. He reported feeling much better than the day before.
Objective Data
-
Vital Signs:
Vital Signs
Temp Pulse Resp BP Pulse Ox
98.5 F 81 18 132/83 97
05/28/25 23:16 05/28/25 23:16 05/28/25 23:16 05/28/25 23:16 05/28/25 23:16
I&O
05/28/25 05/29/25 05/30/25
06:59 06:59 06:59
Intake Total 1035 / 1035 1090 / 1090
Balance 1035 / 1035 1090 / 1090
--- NOTE | 2025-05-29 09:31 | W.PN.ID1 ---
Date of Service
Date of Service: May 29, 2025
Today's Communication
Continue ceftriaxone.
Assessment / Plan
# MDR-Shigellosis with pancolitis, improving
# Fever resolved
# MSM on PrEP
- Suspect pt acquired Shigella from high risk sexual behavior (multiple partners).
MSM are at higher risk for multi-drug resistant Shigella.
- Discussed with micro-lab. Organism susceptible to ceftriaxone. Unable to test for azithromycin in house.
- Continue ceftriaxone.
- If continues to improve, anticipate dc home tomorrow.
- Discussed abstain from any types of sexual activities for at least 2 weeks from resolution of diarrhea. Must wash hands frequently.
- Contact precaution.
Chief Complaint
-: Other (Diarrhea)
Subjective / Review of Systems
Feels much improved with decreased abdominal bloating.
Watery BM now with pieces of stool.
Vital Signs / Physical Exam
Vital Signs
Vital Signs
Temp Pulse Resp BP Pulse Ox
98.8 F 82 20 159/92 94
05/29/25 07:00 05/29/25 07:00 05/29/25 07:00 05/29/25 07:00 05/29/25 07:00
Physical Exam
Constitutional: No Acute Distress
Cardiovascular: Regular Rate and S1/S2
Gastrointestinal: Soft, Non Tender, Non Distended and Normal Bowel Sounds
Extremities: Negative Edema
Neurological: AO x 3
Objective Data
Lab Data
Lab Results
05/28/25 08:08
05/28/25 08:08
Estimated Creat Clear 115 ml/min 05/28/25 08:08
Lactic Acid Cancelled 05/26/25 10:23
Total Bilirubin 0.8 mg/dl (0.2-1.3) 05/28/25 08:08
AST 21 U/L (17-59) 05/28/25 08:08
ALT 23 U/L (0-50) 05/28/25 08:08
Alkaline Phosphatase 55 U/L (38-126) 05/28/25 08:08
Most recent labs reviewed.
Micro Results:
05/25/25 17:25 Blood Culture - Preliminary
Blood/Venous No Growth in 72 hours- Final report to follow
05/25/25 19:28 Salmonella/Shigella Culture - Preliminary
Feces/Stool Shigella species
Campylobacter Culture - Final
No Campylobacter species isolated.
Shiga Toxin Test - Final
No E. coli Shiga Toxin 1 or 2 detected.
05/25/25 19:28 Miscellaneous Microbiology Test - Pending
Feces/Stool
05/25/25 19:28 - Final
Feces/Stool NO YERSINIA SPECIES ISOLATED
05/25/25 19:27 Urine Culture - Final
Urine NO GROWTH
05/26/25 08:56 Blood Parasites Smear - Final
Blood/Venous
05/26/25 11:20 Chlamydia trachomatis (PCR) - Final
Urine Neisseria gonorrhoeae (PCR) - Final
05/25/25 19:28 Cryptosporidium/Giardia - Final
Feces/Stool Negative for Cryptosporidium and/or Giardia Lamblia
antigens.
- Final
Negative for Norovirus GI and GII.
05/25/25 19:28 C. difficile GDH Antigen & Toxins - Final
Feces/Stool Negative for toxigenic C.difficile
CT Abd/pel (oral only)-DH Only 05/25/2025:
There is diffuse wall thickening and surrounding stranding along the colon consistent with pancolitis.
Cholelithiasis without CT findings suggestive of acute cholecystitis.
Hepatosplenomegaly. Hepatic steatosis.
The urinary bladder wall is nondistended with apparent circumferential wall thickening, likely secondary to underdistention, however can be seen with cystitis. Recommend correlation with urinalysis.
[2025-05-29] MEDS: STERILE WATER FOR INJECTION 20 ML IV (14:51)
[2025-05-29] MEDS: ROCEPHIN 2000 MG IV (14:51)
[2025-05-29 15:18] VITALS: BP 163/105
[2025-05-29 17:55] VITALS: BP 148/78
[2025-05-29 23:35] VITALS: BP 155/92
[2025-05-30 07:38] LABS: Hematocrit 36.8 % (39.0-52.0); Hemoglobin 12.6 g/dL (13.0-18.0); Mean Corp Hgb Conc. 34.2 g/dL (33.0-37.0); Mean Corpuscular Volume 85.6 fL (80.0-94.0); Platelet Count 205 10^3/uL (130-400); Red Cell Dist. Width 11.9 % (11.5-14.5)
[2025-05-30 07:40] VITALS: BP 146/95
[2025-05-30] MEDS: HEPARIN 5000 UNITS SC (07:47)
[2025-05-30 08:09] LABS: Blood Urea Nitrogen 15 mg/dl (9-20); Calcium 8.6 mg/dl (8.4-10.2); Carbon Dioxide 30 mmol/L (22-30); Chloride 101 mmol/L (98-107); Estimated Creatinine Clearance 103 ml/min; Glucose 116 mg/dl (70-99); Magnesium 2.0 mg/dl (1.6-2.3); Potassium 3.7 mmol/L (3.5-5.1); Sodium 136 mmol/L (135-145); eGFR > 60.00
--- NOTE | 2025-05-30 08:26 | W.PN.ID1 ---
Date of Service
Date of Service: May 30, 2025
Today's Communication
- Can dc home after last dose of ceftriaxone at 1200.
Assessment / Plan
# MDR-Shigellosis with pancolitis, improving
# Fever resolved
# MSM on PrEP
- Suspect pt acquired Shigella from high risk sexual behavior (multiple partners).
MSM are at higher risk for multi-drug resistant Shigella.
- Discussed with micro-lab. Organism susceptible to ceftriaxone. Unable to test for azithromycin in house.
- s/p Zosyn
- Can dc home after last dose of ceftriaxone at 1200.
- Pt understands to abstain from any types of sexual activities for at least 2 weeks from resolution of diarrhea.
He will be vigilant about good hand hygiene.
Chief Complaint
-: Other (Diarrhea)
Subjective / Review of Systems
diarrhea resolved
Vital Signs / Physical Exam
Vital Signs
Vital Signs
Temp Pulse Resp BP Pulse Ox
98.4 F 78 16 146/95 96
05/30/25 07:40 05/30/25 07:40 05/30/25 07:40 05/30/25 07:40 05/30/25 07:40
Physical Exam
Constitutional: No Acute Distress
Cardiovascular: Regular Rate and S1/S2
Gastrointestinal: Soft, Non Tender, Non Distended and Normal Bowel Sounds
Extremities: Negative Edema
Neurological: AO x 3
Objective Data
Lab Data
Lab Results
05/30/25 06:49
05/30/25 06:49
Estimated Creat Clear 103 ml/min 05/30/25 06:49
Lactic Acid Cancelled 05/26/25 10:23
Total Bilirubin 0.8 mg/dl (0.2-1.3) 05/28/25 08:08
AST 21 U/L (17-59) 05/28/25 08:08
ALT 23 U/L (0-50) 05/28/25 08:08
Alkaline Phosphatase 55 U/L (38-126) 05/28/25 08:08
Most recent labs reviewed.
Micro Results:
05/25/25 17:25 Blood Culture - Preliminary
Blood/Venous No Growth in 4 days- Final report to follow
05/25/25 19:28 Salmonella/Shigella Culture - Preliminary
Feces/Stool Shigella species
Campylobacter Culture - Final
No Campylobacter species isolated.
Shiga Toxin Test - Final
No E. coli Shiga Toxin 1 or 2 detected.
05/25/25 19:28 Miscellaneous Microbiology Test - Pending
Feces/Stool
05/25/25 19:28 - Final
Feces/Stool NO YERSINIA SPECIES ISOLATED
05/25/25 19:27 Urine Culture - Final
Urine NO GROWTH
05/26/25 08:56 Blood Parasites Smear - Final
Blood/Venous
05/26/25 11:20 Chlamydia trachomatis (PCR) - Final
Urine Neisseria gonorrhoeae (PCR) - Final
05/25/25 19:28 Cryptosporidium/Giardia - Final
Feces/Stool Negative for Cryptosporidium and/or Giardia Lamblia
antigens.
- Final
Negative for Norovirus GI and GII.
05/25/25 19:28 C. difficile GDH Antigen & Toxins - Final
Feces/Stool Negative for toxigenic C.difficile
CT Abd/pel (oral only)-DH Only 05/25/2025:
There is diffuse wall thickening and surrounding stranding along the colon consistent with pancolitis.
Cholelithiasis without CT findings suggestive of acute cholecystitis.
Hepatosplenomegaly. Hepatic steatosis.
The urinary bladder wall is nondistended with apparent circumferential wall thickening, likely secondary to underdistention, however can be seen with cystitis. Recommend correlation with urinalysis.
Care Review
Plan reviewed with: Physician (Dr. Sanz)
--- NOTE | 2025-05-30 08:30 | W.PN.HOSP.TC ---
Today's Communication/Plan
-
Discharge today
Assessment / Plan
Assessment / Plan
Physical Exam
General: No Apparent Distress
HEENT: Normocephalic
Cardiovascular: S1 and S2. RRR.
Pulmonary: Clear to auscultation bilaterally
GI: Soft, Nontender and Nondistended. Positive bowel sounds.
Psych: Calm
Assessment/Plan
60 y/o male with no significant past medical history, currently on Dyscovy for pre-exposure prophylaxis came with watery diarrhea started 48h after admission after dinner. No risk factors identified. CT showed butts-colitis, stool Cx grew shigella.
Symptoms improved/resolved with antibiotics.
#Sepsis on admission 2/2 Pancolitis due to Shigella
#MDR-Shigellosis with pancolitis
#Fever resolved
#MSM on PrEP
ID since butts-resistant, but patient improved on Zosyn
Ceftriaxone course completed today, no antibiotics needed on discharge
Suspected that patient acquired Shigella from high risk sexual behavior (multiple partners).
HIV test Neg
ID consult appreciated
#Acute Kidney Injury
2/2 diarrhea
Resolved
IVF was given
Follow Cr
CT without hydronephrosis or nephrolithiasis
Urine studies
#Mild bilirubinemia
improved
Blood smear neg for parasites
#Mild Hyponatremia - RESOLVED
stable
#Renal cyst 4.2cm
#Umbilical hernia
#Splenomegaly, most likely reactive
#Cholelithiasis
outpatient f/u
monospot neg
#Bacteriuria
no urinary symptoms, however thickened urinary bladder wall
Clam/GC neg
DVT Prophylaxis: Heparin
Code Status: Full Code
More than 30 minutes spent in discharge including
Final examination of the patient
Summarizing hospital stay
Instructions for continuing care to all relevant caregivers
Preparation of discharge records, prescriptions, and referral forms
Total time spent (in minutes): 39
Anticipated Discharge: Today
Subjective/Interval History
-
Date of Service: May 30, 2025
Patient was seen and examined. He denied any symptoms or complaints and stated that he is looking forward to going home today.
Objective Data
-
Labs:
Laboratory Results
05/30/25
06:49
WBC 6.3
Hgb 12.6 L
Hct 36.8 L
Plt Count 205
Sodium 136
Potassium 3.7
Chloride 101
Carbon Dioxide 30
BUN 15
Creatinine 1.0
Glucose 116 H
Calcium 8.6
Vital Signs:
Vital Signs
Temp Pulse Resp BP Pulse Ox
98.4 F 78 16 146/95 96
05/30/25 07:40 05/30/25 07:40 05/30/25 07:40 05/30/25 07:40 05/30/25 07:40
I&O
05/29/25 05/30/25 05/31/25
06:59 06:59 06:59
Intake Total 1090 / 1090 1600 / 1600
Balance 1090 / 1090 1600 / 1600
[2025-05-30] MEDS: ROCEPHIN 2000 MG IV (11:47)
[2025-05-30] MEDS: STERILE WATER FOR INJECTION 20 ML IV (11:47)
--- NOTE | 2025-05-30 13:27 | CM ---
CM following re: discharge planning.
Reviewed pt's chart, met with pt.
Discharge order noted. Pt is aware, expressed his agreement with discharge and he stated his neighbor Emani will transport home.
No after care VN needs identified.
Plan: home no needs. Neighbor Emani to transport.
[2025-05-30 13:30] VITALS: BP 145/80
== END 2025-05-30 14:00 | disposition home or self-care (01) | DRG 872 ==
LOC: 2 NORTH 20:54
PROVIDERS: Emergency Medicine; Internal Medicine; ADMITTING PHYSICIAN Internal Medicine; ATTENDING PHYSICIAN Hospitalist; CONSULT PHYSICIAN Internal Medicine Infectious Disease; EMERGENCY PHYSICIAN Emergency Medicine; FAMILY PHYSICIAN Internal Medicine
DX: A41.9 Sepsis, unspecified organism (principal); A03.0 Shigellosis due to Shigella dysenteriae; N17.9 Acute kidney failure, unspecified; E87.1 Hypo-osmolality and hyponatremia; E86.1 Hypovolemia; E66.9 Obesity, unspecified; N28.1 Cyst of kidney, acquired; K42.9 Umbilical hernia without obstruction or gangrene; R16.1 Splenomegaly, not elsewhere classified; K80.20 Calculus of gallbladder without cholecystitis without obstruction; E80.7 Disorder of bilirubin metabolism, unspecified; R82.71 Bacteriuria; I10 Essential (primary) hypertension; K64.4 Residual hemorrhoidal skin tags; Z68.36 Body mass index [BMI] 36.0-36.9, adult; Z79.899 Other long term (current) drug therapy
CPT/HCPCS: 74176; 80048; 80053; 81003; 81015; 82248; 82533; 82570; 83605; 83735; 83935; 84300; 85025; 85027; 86308; 87015; 87040; 87045; 87046; 87077; 87086; 87186; 87207; 87324; 87328; 87329; 87389; 87427; 87449; 87491; 87591; 87798; 93005; 96365; 99285